=== PATIENT | female | born 1980 | race Two or more races ===

== ENCOUNTER 2020-02-19 13:08 | Outpatient (CLI) | payer OTHER | END 2020-02-19 13:24 | disposition home or self-care (01) | LOC: SONOGRAMA 13:08 | PROVIDERS: ATTEND Surgery | DX: N60.11 Diffuse cystic mastopathy of right breast (principal); N60.12 Diffuse cystic mastopathy of left breast ==

== ENCOUNTER 2020-09-09 05:25 | Day surgery (SDC) | payer OTHER ==
[~2020-09-09 05:25] MED LIST: CLARITIN-D 241 EACH PO; FIORICET PO; SKELAXIN800 MG PO
== END 2020-09-09 14:35 | disposition home or self-care (01) ==
LOC: CIR.AMB 05:25
PROVIDERS: ATTEND Surgery
DX: D24.2 Benign neoplasm of left breast (principal); Z20.822 Contact with and (suspected) exposure to COVID-19

== ENCOUNTER 2021-04-17 12:53 | Outpatient (CLI) | payer OTHER | END 2021-04-17 13:35 | disposition home or self-care (01) | LOC: SONOGRAMA 12:53 | PROVIDERS: ATTEND Surgery | DX: D24.2 Benign neoplasm of left breast (principal); N60.11 Diffuse cystic mastopathy of right breast; N60.12 Diffuse cystic mastopathy of left breast ==

== ENCOUNTER 2021-09-15 06:40 | Day surgery (SDC) | payer OTHER | END 2021-09-15 19:30 | disposition home or self-care (01) | LOC: CIR.AMB 06:40 | PROVIDERS: ATTEND Surgery | DX: D24.2 Benign neoplasm of left breast (principal); N62 Hypertrophy of breast; N60.11 Diffuse cystic mastopathy of right breast; Z88.0 Allergy status to penicillin; Z88.6 Allergy status to analgesic agent; J45.909 Unspecified asthma, uncomplicated ==

== ENCOUNTER 2023-01-18 06:00 | Day surgery (SDC) | payer OTHER ==
[~2023-01-18] VITALS: Ht 160 cm; Wt 77.1 kg
[~2023-01-18 06:00] MED LIST changes: +CRESTOR10 MG PO; +FIORICET
== END 2023-01-18 13:55 | disposition home or self-care (01) ==
LOC: CIR.AMB 06:00
PROVIDERS: ATTEND Surgery
DX: D05.12 Intraductal carcinoma in situ of left breast (principal); N60.22 Fibroadenosis of left breast; I10 Essential (primary) hypertension; Z88.0 Allergy status to penicillin; Z88.6 Allergy status to analgesic agent; Z20.822 Contact with and (suspected) exposure to COVID-19

== ENCOUNTER 2023-01-19 08:46 | Inpatient (IN) | payer OTHER ==
[~2023-01-19] VITALS: Ht 160 cm; Wt 77.1 kg
--- NOTE | 2023-01-19 09:21 | NUR ---
PTE REFIERE QUE TIENE UN SALTY DOLOR EN EL SENO ANNALISA PTE FUE OPERADA EL SHARIF DE KISHA POR LA JACQUES AYENDE
--- NOTE | 2023-01-19 10:06 | NUR ---
PTE ALERTA Y ORIENTADA X3 ES EVALUADA POR EL DR. BLISSA EL CUAL ORDENA TRATAMIENTO MEDICO. SE ORIENTA SOBRE TRATAMIENTO ORDENADO, VERBALIZA ENTENDER. RN E SWAIN REALIZA VENOPUNCION Y DMITRY MUESTRA DE LABORATORIO KELIN ORDEN MEDICA BAJO MEDIDAS ASEPTICAS Y SE ENVIAN A LABORATORIO Y ADMINISTRA MEDICAMENTO KELIN ORDEN MEDICA.
--- NOTE | 2023-01-19 11:24 | NUR ---
SE LE ORIENTA A PACIENTE SOBRE ORDENES MEDICAS Y VERBALIZA ENTENDER. SE LE HACE ENTREGA A PACIENTE VESTIMENTA DE JOHN DE OPERACIONES. SE LE ORIENTA SOBRE REMOVER PRENDAS Y PERTENCIAS Y HACERLE ENTREGA A LAS MISMAS A FAMILIAR. PENDIENTE A SER SOLICITADA DE JOHN DE OPERACIONES.
== END 2023-01-20 12:30 | disposition home or self-care (01) | DRG 909 ==
LOC: ER 08:46 → CIR.AMB 11:19 → SURG 15:32
PROVIDERS: ADMIT Surgery; ATTEND Surgery
PROC: 0H9U0ZZ Drainage of Left Breast, Open Approach (ICD-10-PCS; principal; 2023-01-19 12:00)
DX: L76.32 Postprocedural hematoma of skin and subcutaneous tissue following other procedure (principal); Z20.822 Contact with and (suspected) exposure to COVID-19

== ENCOUNTER 2023-01-23 01:14 | Emergency (ER) | payer OTHER ==
[~2023-01-23] VITALS: Ht 160 cm; Wt 77.1 kg
== END 2023-01-23 08:49 | disposition home or self-care (01) ==
LOC: ER 01:14
DX: M54.2 Cervicalgia (principal); R51.9 Headache, unspecified

== ENCOUNTER 2023-03-29 06:00 | Day surgery (SDC) | payer OTHER ==
[~2023-03-29] VITALS: Ht 160 cm; Wt 78.0 kg
[~2023-03-29 06:00] MED LIST changes: +CRESTOR5 MG PO; +[UNRECOGNIZED DRUG - OTHER] PO
== END 2023-03-29 14:05 | disposition home or self-care (01) ==
LOC: CIR.AMB 06:00
PROVIDERS: ATTEND Surgery
DX: D05.12 Intraductal carcinoma in situ of left breast (principal); D24.2 Benign neoplasm of left breast; N60.82 Other benign mammary dysplasias of left breast; I10 Essential (primary) hypertension; Z88.0 Allergy status to penicillin; Z88.6 Allergy status to analgesic agent